=== PATIENT | male | born 1960 | race Caucasian/White ===

== ENCOUNTER 2024-09-29 15:31 | Outpatient (AMB) | payer OTHER, SELFPAY ==
--- NOTE | 2024-09-29 15:48 | AM.OFFWIN_ITS ---
Intake Vital Signs 09/29/24 15:49 Height 5 ft 9 in Weight 197 lb 2 oz BMI 29.1 BP 134/72 Blood Pressure Location Lt brachial Position Sitting Pulse 68 Pulse Source Pulse Oximeter Temp 98.3 F Temp Source Oral Pulse Oximetry (%) 97 Oxygen Delivery Method Room Air Intake Visit Reasons: EP Hernia? 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 - The patient reports a noticeable lump in the abdomen for several months, accompanied by sharp pains and nausea. - Two CT scans confirmed the presence of an abdominal hernia that he had done at [facility]. - He was referred to a surgeon but they are out of network. - Constipation is a concern, managed wit h laxatives. - The patient lacks a primary care provi sandy and has difficulty accessing surgical consultation due to network issues. - He states that he can no longer take t he pain and he needs to have this repaired. - He has been frustrated with the runaro und he is getting from [facility] and his other providers. - He has been nauseous and eating very l ittle. - He still has been working. - He denies diarrhea, bleeding rectally, fever, chills, or vomiting. Physical Exam General: Cooperative, healthy appearing, comfortable, no acute distress and well developed Orientation: Patient oriented x3 Respiratory: Normal respiratory effort and able to speak in complete sentences. Clear to auscultation bilaterally Cardiovascular: Regular rate and rhythm. Normal S1 and S2 GI: Hypoactive bowel sounds. Soft, non-distended abdomen with a noticeable bulge in the LLQ. Hernia is soft, non-tender. No guarding or rebound tenderness noted. Skin: No rashes or lesions noted Patient was informed and verbally consented to the use of an ambient scribe for clinic note documentation during this visit. [facility] Social History Patient Tobacco Use Status: Former Tobacco user Review of Systems Const All systems reviewed & are unremarkable except as noted in HPI and below Physical Exam Vital Signs: Last Vital Signs Temp 98.3 F 09/29/24 15:49 Pulse 68 09/29/24 15:49 BP 134/72 09/29/24 15:49 Pulse Ox 97 09/29/24 15:49 Oxygen Delivery Method Room Air 09/29/24 15:49 BMI result Body Mass Index 29.1 Assessment & Plan Assessment & Plan (1) Hernia: Code(s): K46.9 - Unspecified abdominal hernia without obstruction or gangrene Plan Most likely an abdominal hernia Plan - Referral to a surgeon within the patient's insurance network for hernia management. - Re-establish care with a primary care provider for coordinated management and referrals. - Continue laxatives as needed for constipation. - Advised him to go to the ER if his hernia is not reducible, painful, vomiting, etc Orders: Referrals General Surgery Referral K46.9 - Unspecified abdominal hernia without obstruction or gangrene Coding Level of Care Code Est Pt Level 4 (38630) Diagnoses Hernia K46.9
[2024-09-29 15:49] VITALS: BP 134/72; PULSE 68; TEMP 36.8; O2SAT 97; BMI 29.1
== END 2024-09-29 16:42 | disposition home or self-care (01) ==
PROVIDERS: PCP Family Medicine; Visit Provider Physician Assistant Medical
DX: K46.9 Unspecified abdominal hernia without obstruction or gangrene (principal)

== ENCOUNTER 2024-10-22 08:44 | Emergency (ER) | payer OTHER, SELFPAY ==
--- NOTE | ~2024-10-22 | CT_ITS ---
EXAMINATION: CT ABDOMEN AND PELVIS WITH CONTRAST CLINICAL INFORMATION: Left-sided abdominal pain COMPARISON: None available. TECHNIQUE: Multidetector volumetric images were obtained from the superior aspect of the liver through the pubic symphysis following administration 85 mL of Omnipaque 350 intravenous contrast. Sagittal and coronal reformatted images were obtained on the technologist's workstation. Oral contrast: No This CT examination was performed using dose optimization techniques as appropriate, variously including the following: *Automated exposure control *Adjustment of mA and/or kV according to patient size (this includes techniques or standardized protocols for targeted exams where dose is matched to indication/reason for exam; i.e. extremities or head) *Use of iterative reconstruction technique. DLP: 708 mGy centimeter. FINDINGS: Beam hardening artifact secondary to the metallic hip prosthesis bilaterally. LUNG BASES: No gross acute airspace disease. LIVER, GALLBLADDER, AND BILIARY TREE: Liver measures 14 cm. There are multiple, different sizes, lobulated, fluid density lesions throughout the hepatic parenchyma, the largest measures 24 mm. Main portal veins, hepatic veins and intrahepatic portion of the IVC are patent. Gallbladder is nondistended. No pericholecystic fluid collection or gallbladder wall thickening. No intrahepatic or extrahepatic biliary ductal dilatation. PANCREAS: No focal mass. No peripancreatic fluid collection. SPLEEN: 8 cm. No focal mass. ADRENAL GLANDS: No nodular lesion soft tissue fullness, both adrenal glands. Punctate calcification right adrenal gland. KIDNEYS AND URETERS: Cluster of less than 5 mm calculi in the midportion of the right kidney. 1 mm calcification in the lower pole left kidney. Multifocal parapelvic and exophytic cystic lesions in the kidneys. No gross hydronephrosis. Normal enhancement pattern of the renal parenchyma without gross renal mass. No dilatation of the ureters. BLADDER: Fluid-filled. GASTROINTESTINAL TRACT: Appendix is normal. Stool within the large intestine. Gas and fluid-filled mildly prominent small bowel loops. No gross intestinal wall thickening. No pneumatosis intestinalis. No ascites. No pneumoperitoneum. ABDOMINAL WALL: Small fat-containing umbilical hernia. Asymmetric fat density in the left inguinal canal. No overt inguinal hernia. LYMPH NODES: No mesenteric or retroperitoneal lymphadenopathy. VASCULAR: Throughout the abdominal aorta wall and iliac arteries. No aneurysm or dissection abdominal aorta. Focal calcified plaque in the proximal right main renal artery. PELVIC VISCERA: Not enlarged. OSSEOUS STRUCTURES: Bilateral hip arthroplasty prosthesis. Multilevel thoracolumbar spondylosis without acute fracture or gross listhesis. Central spinal canal stenosis at L3-4 and to a lesser extent L4-5 on a degenerative basis. Spina bifida occulta, S1. CT/CT abdomen pelvis w IV con IMPRESSION: Probable enteritis without intestinal obstruction pattern. Small fat-containing umbilical hernia. Asymmetric prominent fat density left inguinal canal without overt hernia. Nonobstructing nephrolithiasis, bilaterally. Probable multiple hepatic cysts. Multiple parapelvic and exophytic renal cysts, bilaterally. Atherosclerosis disease. Calcified plaque at the origin right main renal artery with likely high degree stenosis. Multilevel thoracolumbar spondylosis. Fleischner guidelines were followed. Electronically signed by: Ayan Barger MD 10/22/2024 12:49 PM EDT
[2024-10-22 08:49] VITALS: BP 195/84; PULSE 73; RESP 16; TEMP 36.3; O2SAT 99; BMI 29.9
[2024-10-22 09:08] LABS: MANUAL DIFF FLAG NO
[2024-10-22 09:11] LABS: Hematocrit 45.9 % (42.0-52.0); Hemoglobin 16.6 g/dl (14.0-18.0); Imm Gran Abs Auto 0.01 X10*3/uL (0.00-0.03); Imm Gran Pct Auto 0.2 % (0.0-0.4); Lymphocytes Absolute Auto 1.4 X10*3/uL (1.2-4.9); Mean Corpuscular HGB Conc 36.2 g/dl (31.0-36.0); Mean Corpuscular Hemoglobin 31.2 pg (27.0-33.0); Mean Corpuscular Volume 86.3 fL (80.0-98.0); NRBC Abs Auto 0.000 X10*3/uL (0.0-0.012); NRBC Pct Auto 0.0 /100WBC (0.0-0.2); Platelet Count 214 X10*3/uL (160-400); Red Blood Count 5.32 X10*6/uL (4.60-5.80); White Blood Count 4.9 X10*3/uL (4.8-10.8)
[2024-10-22 09:25] LABS: Alanine Aminotransferase 26 U/L (0-40); Albumin Level 5.0 g/dL (3.5-5.0); Alkaline Phosphatase 81 U/L (39-117); Anion Gap 14 (12-20); Aspartate Amino Transferase 27 U/L (5-37); Blood Urea Nitrogen 16 mg/dL (9-16); Calcium 10.4 mg/dL (8.4-10.2); Carbon Dioxide 21 mmol/L (22-29); Chloride 109 mmol/L (96-108); Creatinine Clr Calc Pharmacy 81.0; Estimated Glomerular Filt Rate > 60; Lipase 30 U/L (8-78); Potassium 4.0 mmol/L (3.3-5.1); Sodium 140 mmol/L (135-145); Total Protein 7.7 g/dL (6.5-8.0)
--- NOTE | 2024-10-22 10:26 | PC.NURSE ---
patient presents to the ED with pain in his abd, patient has known hernia that he was dx with 6mo ago, states that he has been following at [facility] but his appointments are too far out. patient states that he has 8/10 pain. patient states he has poor po intake due to pain/nausea/vomiting. last BM was this morning that he described as small.
--- NOTE | 2024-10-22 10:53 | ED_ITS ---
HPI - Abdominal Pain General Chief Complaint: Abdominal Pain Stated Complaint: hernia, vomiting Time Seen by Provider: 10/22/24 10:32 Source: patient Mode of arrival: ambulatory Limitations: no limitations History of Present Illness HPI narrative: This is a 64 years old patient comes in complaining of abdominal pain, he stated that he has a history of hernia for the last couple of days he has been having more nausea vomiting and increasing pain. MD elicited complaint: abdominal pain Pertinent past history: other (Hernia) Onset (ago): day(s) (2) Pain Consistency: constant Location: LLQ Severity: mild Quality: cramping Radiation: none Migration to: no migration Exacerbating factors: nothing Relieving factors: nothing Associated symptoms: denies other symptoms Related Data Previous Rx's ?Medication ?Instructions ?Recorded amlodipine 5 mg-benazepril 20 mg 1 cap PO DAILY 90 day s #90 caps 10/25/21 capsule simvastatin 20 mg tablet 20 mg PO DAILY 90 days #90 t abs 10/25/21 omeprazole 40 mg capsule,delayed 40 mg PO DAILY 4 week s #28 caps 10/22/24 release Allergies Allergy/AdvReac Type Severity Reaction Status Date / Time No Known Allergies Allergy Verified 10/22/24 08:50 Review of Systems Constitutional: Reports no additional constitutional complaints Reports system reviewed and no additional complaints, except as documented Reports system reviewed and no additional complaints, except as documented Psychiatric: Reports no additional psychiatric complaints [facility] Past Medical History [facility] Narrative: History of left inguinal area Social History Social History Patient Tobacco Use Status: Former Tobacco user Physical Exam ED Exam Exam: No acute distress comfortable in the stretcher Vital Signs: Vital Signs - 24 hr 10/22/24 08:49 10/22/24 11:49 Temperature 97.4 F Pulse Rate 73 60 Respiratory Rate 16 16 Blood Pressure 195/84 H 163/76 H Pulse Oximetry 99 100 Oxygen Delivery Method Room Air Room Air BMI result Body Mass Index 29.9 Const General: cooperative Nutritional Appearance: well nourished Orientation/consciousness: patient oriented x3 HENMT Head: Yes normal to inspection Ears: hearing grossly normal bilaterally Face and sinus: Yes normal facial exam Mouth: Normal oral and palatal mucosa present Throat: Yes posterior oropharynx normal Neck Neck: Yes normal visual inspection Chest Chest palpation & inspection: normal inspection of the chest Resp Effort & Inspection: normal respiratory effort Auscultation: clear to auscultation bilaterally Cardio Jugular venous distension: no JVD Rate: regular rate Rhythm: regular rhythm GI Inspection: Yes normal to inspection Palpation (GI): Soft to palpation, not firm and nontender Auscultation: normal bowel sounds Skin General skin exam: no rashes or lesions noted Lesions: no lesions Rashes: no rashes Neuro General: patient oriented x3 Course Reevaluation(s) Reevaluation #1: CT reviewed with the patient no evidence of small-bowel obstruction no evidence of inguinal hernia he has a small umbilical hernia with fat. I think he can be discharged home. He can follow-up with the his primary care physician and GI (radiology read as a possible enteritis) Medical Decision Making Medical Decision Making MDM Narrative: Patient is here complaining of left lower quadrant abdominal pain we will obtain imaging we will administer IV fluids analgesia. 13:11 workup is now completed he has a normal white count. CT scan shows no bowel obstruction no free air no inguinal hernia, possible enteritis I think he can be discharged home he can follow-up with accounts receivable representative ,at this time we will discharge him home Differential Diagnosis Differential Diagnoses: The differential diagnosis associated with the presentation includes Admission/Observation Consideration of admission/observation: Escalation of care including admission/observation considered Lab Data [facility] Lab Attestation statement: I reviewed the patient's lab results. 10/22/24 09:05 10/22/24 09:05 Labs: Lab Results 10/22/24 10/22/24 Range/Units 09:05 11:51 WBC 4.9 (4.8-10.8) X10*3/uL RBC 5.32 (4.60-5.80) X10*6/uL Hgb 16.6 (14.0-18.0) g/dl Hct 45.9 (42.0-52.0) % MCV 86.3 (80.0-98.0) fL MCH 31.2 (27.0-33.0) pg MCHC 36.2 H (31.0-36.0) g/dl RDW 12.4 (11.0-16.0) % Plt Count 214 (160-400) X10*3/uL MPV 8.7 L (9.4-12.4) fL Immature Gran % (Auto) 0.2 (0.0-0.4) % Neut % (Auto) 61.2 (45-73) % Lymph % (Auto) 28.7 (20-40) % [place] % (Auto) 8.1 (2-11) % Eos % (Auto) 1.2 (0-4) % Baso % (Auto) 0.6 (0-2) % Lymph # (Auto) 1.4 (1.2-4.9) X10*3/uL [place] # (Auto) 0.4 (0.1-1.2) X10*3/uL Eos # (Auto) 0.1 (0.0-0.4) X10*3/uL Baso # (Auto) 0.0 (0.0-0.2) X10*3/uL Abs Immat Gran (auto) 0.01 (0.00-0.03) X10*3/uL Absolute Neuts (auto) 3.0 (2.0-8.3) x10*3/uL Absolute Nucleated RBC 0.000 (0.0-0.012) X10*3/uL Nucleated RBC % (auto) 0.0 (0.0-0.2) /100WBC Sodium 140 (135-145) mmol/L Potassium 4.0 (3.3-5.1) mmol/L Chloride 109 H (96-108) mmol/L Carbon Dioxide 21 L (22-29) mmol/L Anion Gap 14 (12-20) BUN 16 (9-16) mg/dL Creatinine 0.96 (0.5-1.4) mg/dL Estim Creat Clear Calc 81.0 Estimated GFR > 60 Random Glucose 120 H (60-115) mg/dL Calcium 10.4 H (8.4-10.2) mg/dL Total Bilirubin 0.6 (0.0-1.0) mg/dL AST 27 (5-37) U/L ALT 26 (0-40) U/L Alkaline Phosphatase 81 (39-117) U/L Total Protein 7.7 (6.5-8.0) g/dL Albumin 5.0 (3.5-5.0) g/dL Lipase 30 (8-78) U/L Urine Color Yellow Urine Appearance Clear Urine pH 6.5 (5.0-9.0) Ur Specific [place] 1.010 (1.005-1.025) Urine Protein Negative (Neg-Trace) mg/dL Urine Glucose (UA) Negative (Negative) mg/dL Urine Ketones Negative (Negative) mg/dL Urine Blood Negative (Negative) Urine Nitrite Negative (Negative) Ur Leukocyte Esterase Negative (Negative) Medications Administered Discontinued Medications Generic Name Dose Route Start Last Admin Trade Name Freq PRN Reason Stop Dose Admin Sodium Chloride 1,000 mls @ 999 mls/hr 10/22/24 11:00 10/22/24 12:48 Ns IVCONT 10/22/24 12:00 Infused .Q1H1M VENU Infusion Sodium Chloride 1,000 mls @ 999 mls/hr 10/22/24 11:00 10/22/24 13:35 Ns IVCONT 10/22/24 12:00 Infused .Q1H1M VENU Infusion Iohexol 100 ml 10/22/24 12:11 10/22/24 12:11 Iohexol 350 Mg/Ml 100 Ml Infus..Btl IV 10/22/24 12:12 85 ml ONCE ONE Administration Morphine Sulfate 4 mg 10/22/24 10:52 10/22/24 11:07 Morphine Sulfate 4 Mg/Ml Cartridge IVPUSH 10/22/24 10:53 4 mg ONCE ONE Administration Protocol Ondansetron HCl 4 mg 10/22/24 10:52 10/22/24 11:07 Ondansetron Hcl 4 Mg/2 Ml Vial IVPUSH 10/22/24 10:53 4 mg ONCE ONE Administration Discharge Plan Discharge Clinical Impression: Abdominal pain Patient Disposition: Home, Self-Care Instructions: Abdominal Pain (ED) Additional Instructions: Follow-up with accounts receivable representative, as we discussed the CAT scan shows no blockage, no colitis no diverticulitis no definitive hernia in the left inguinal canal stay on liquid diet for few days we sent a prescription for Protonix to your pharmacy Prescriptions: New omeprazole 40 mg capsule,delayed release(DR/EC) 40 mg PO DAILY 28 Days Qty: 28 0RF No Action amlodipine-benazepril 5-20 mg capsule 1 cap PO DAILY 90 Days Qty: 90 1RF simvastatin 20 mg tablet 20 mg PO DAILY 90 Days Qty: 90 1RF Referrals: Keren Jennings MD [Physician, Gastroenterology] - 10/28/24 Discharge Date/Time: 10/22/24 13:37 Print Language: Wolof
[2024-10-22 11:49] VITALS: BP 163/76; PULSE 60; RESP 16; O2SAT 100
[2024-10-22 11:59] LABS: Appearance Urine Clear; Glucose Urine UA Negative (Negative); PH 6.5 (5.0-9.0); Specific Gravity - Urine 1.010 (1.005-1.025)
[2024-10-22] MEDS: iohexoL 350 MG/ML 100 ML INFUS..BTL IV (12:11)
== END 2024-10-22 13:37 | disposition home or self-care (01) ==
PROVIDERS: Emergency Provider Emergency Medicine
DX: R10.2 Pelvic and perineal pain (principal); R11.2 Nausea with vomiting, unspecified; R10.32 Left lower quadrant pain; Z87.891 Personal history of nicotine dependence; Z79.899 Other long term (current) drug therapy
CPT/HCPCS: 36415; 74177; 80053; 81003; 83690; 85025; 96361; 96374; 96375; 99284; J2270; J2405; Q9967

== ENCOUNTER → 2024-10-22 10:51 | Outpatient (BNV) | payer OTHER, SELFPAY | PROVIDERS: Emergency Provider Emergency Medicine; Visit Provider Radiology Diagnostic Radiology | DX: K42.9 Umbilical hernia without obstruction or gangrene (principal) | CPT/HCPCS: 74177 ==

== ENCOUNTER 2024-10-23 12:52 | Outpatient (AMB) | payer OTHER, SELFPAY ==
--- NOTE | 2024-10-23 12:54 | MHC.PC.OV ---
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: No Accompanied by: Self / Same As Patient Allergies No Known Allergies Allergy (Verified 10/23/24 12:55) Medication List - Last Reconciled 10/23/24 by Pia Holbrook MD amlodipine-benazepril 5-20 mg 1 cap PO DAILY 90 days simvastatin 20 mg PO DAILY 90 days Tobacco use date assessed: 10/23/24 Dental Screening Dental Screen Date: 10/23/24 Did you have a dental visit in the last 12 months?: Yes Did you have a dental problem in the last 6 months where you did not have access to dental care?: No Was dental information given to patient?: Patient has dentist HPI HPI Comments History of Present Illness Details The patient is a 64-year-old male presenting with an inguinal hernia and needs to establish care with PCP. The inguinal hernia has been present for approximately six months, causing discomfort and pain, especially during physical activities such as climbing ladders and mixing concrete. The patient reports that the hernia becomes more prominent with certain movements and has led to a significant weight loss from 206 pounds to 189 pounds. The patient has a history of bilateral renal cysts, pancreatic cyst, and liver cysts, which were identified through imaging studies. The pancreatic cyst was previously evaluated and determined to be benign. The patient has a history of hypertension, which was noted to be elevated during a recent hospital visit, possibly due to stress. The patient is currently on amlodipine benazepril for blood pressure management. The patient has experienced hyperglycemia and hypercalcemia, with recent lab results indicating elevated glucose and calcium levels. The patient denies any history of kidney stones despite the elevated calcium levels. The patient has a history of constipation, for which he has been taking laxatives. The patient underwent bilateral hip replacement due to osteoarthritis approximately five years ago, with no current issues reported. The patient also reports knee osteoarthritis, with significant degeneration noted in the knee joint. [facility] Social History Housing: House Patient Tobacco Use Status: Former Tobacco user e-Cigarette/Vaping Use: Never Used service: No Current occupational status: employed Hearing needs: No Vision needs: No Questionnaire PHQ-9 Over the last 2 weeks, how often have you been bothered by any of the following problems? 1. Little interest or pleasure in doing things: not at all 2. Feeling down, depressed, or hopeless: not at all 3. Trouble falling or staying asleep, or sleeping too much: not at all 4. Feeling tired or having little energy: not at all 5. Poor appetite or overeating: not at all 6. Feeling bad about yourself - or that you are a failure or have let yourself or your family down: not at all 7. Trouble concentrating on things, such as reading the newspaper or watching television: not at all 8. Moving or speaking so slowly that other people could have noticed. Or the opposite - being so fidgety or restless that you have been moving around a lot more than usual: not at all 9. Thoughts that you would be better off or of hurting yourself in some way: not at all Total score: 0 76839 - PHQ-9 Billing: Yes Source: Developed by Drs. Shine Prasad, Lyndsey San, Aramis Hendrickson and colleagues, with an educational radha from [employer]. Thrive Questionnaire Date Thrive assessed: 10/23/24 I am a: Patient What is your living situation today?: I have a steady place to live Within the past 12 months, did the food you bought not last and you didn't have the money to get more?: Never true Within the past 12 months, did you worry whether your food would run out before you got money to buy more?: Never true Do you have trouble paying for medicines?: No Do you have trouble getting transportation to medical appointments?: No Do you have trouble paying your heating and electricity bill?: No Do you have trouble taking care of your child, family member or friend?: No Do you have trouble with day-to-day activities such as bathing, preparing meals, shopping, managing finances, etc.?: No Are you currently unemployed and looking for a job?: No Are you interested in more education?: No Please select the resources that you would like help with: None Currently or been in a relationship where the following occur: No concerns reported THRIVE Score: 0 AUDIT C Alcohol Use Questionnaire (AUDIT-C) 1. How often do you have a drink containing alcohol?: Never Total Score: 0 SAMIRA-7 AMB Questionnaire SAMIRA-7 Date SAMIRA - 7 assessed: 10/23/24 Feeling nervous, anxious, or on edge: 0 = Not at all Not being able to stop or control worryin = Not at all Worrying too much about different things: 0 = Not at all Trouble relaxin = Not at all Being so restless that it is hard to sit still: 0 = Not at all Becoming easily annoyed or irritable: 0 = Not at all Feeling afraid as if something awful might happen: 0 = Not at all Total SAMIRA-7 score (0-4 normal; 5-9 mild; 10-14 moderate; 15-21 severe): 0 Source: Developed by Drs. Shine Prasad, Lyndsey San, Aramis Hendrickson and colleagues, with an educational radha from [employer]. SAMIRA-7 Assessment Billing SAMIRA-7 Assessment Tool: SAMIRA-7 Assessment 80712 Review of Systems Const Details: Positives besides what was mentioned in HPI are in BOLD Constitutional: No Weight Change, No Fever, No Chills, No Night Sweats, No Fatigue, No Malaise ENT/Mouth: No Hearing Changes, No Ear Pain, No Nasal Congestion, No Sinus Pain, No Hoarseness, No sore throat, No Rhinorrhea, No Swallowing Difficulty Eyes: No Eye Pain, No Swelling, No Redness, No Foreign Body, No Discharge, No Vision Changes Cardiovascular: No Chest Pain, No SOB, No PND, No Dyspnea on Exertion, No Orthopnea, No Claudication, No Edema, No Palpitations Respiratory: No Cough, No Sputum, No Wheezing, No Smoke Exposure, No Dyspnea Gastrointestinal: No Nausea, No Vomiting, No Diarrhea, No Constipation, No Pain, No Heartburn, No Anorexia, No Dysphagia, No Hematochezia, No Melena, No Flatulence, No Jaundice Genitourinary: No Dysmenorrhea, No DUB, No Dyspareunia, No Dysuria, No Urinary Frequency, No Hematuria, No Urinary Incontinence, No Urgency, No Flank Pain, No Urinary Flow Changes, No Hesitancy Musculoskeletal: No Arthralgias, No Myalgias, No Joint Swelling, No Joint Stiffness, No Back Pain, No Neck Pain, No Injury History Skin: No Skin Lesions, No Pruritis, No Hair Changes, No Breast/Skin Changes, No Nipple Discharge Neuro: No Weakness, No Numbness, No Paresthesias, No Loss of Consciousness, No Syncope, No Dizziness, No Headache, No Coordination Changes, No Recent Falls Psych: No Anxiety/Panic, No Depression, No Insomnia, No Personality Changes, No Delusions, No Rumination, No SI/HI/AH/VH, No Social Issues, No Memory Changes, No Violence/Abuse Hx., No Eating Concerns Heme/Lymph: No Bruising, No Bleeding, No Transfusions History, No Lymphadenopathy Endocrine: No Polyuria, No Polydipsia, No Temperature Intolerance Physical exam (Primary Care) Vital Signs: Last Vital Signs Pulse 75 10/23/24 12:57 BP 120/70 10/23/24 12:57 Pulse Ox 98 10/23/24 12:57 Oxygen Delivery Method Room Air 10/23/24 12:57 BMI result Body Mass Index 28.4 Tobacco/Smoking Status: Tobacco use Status Tobacco use date assessed 10/23/24 10/23/24 13:07 Patient Tobacco Use Status Former Tobacco user 10/23/24 13:07 e-Cigarette/Vaping Use Never Used 10/23/24 13:07 PHQ-9: PHQ-9 Score PHQ-9: Total score 0 10/23/24 13:07 Thrive Assessment: Date of Thrive Assessment Date Thrive assessed 10/23/24 10/23/24 13:07 Currently or been in a relationship where the following occur: No concerns reported Const Other: Pertinent findings are in BOLD GENERAL APPEARANCE NAD, activity normal for age, well developed/ well nourished, no cyanosis, pallor, or diaphoresis. EYES lids/conjunctiva normal. EARS/NOSE/THROAT Mucous membranes moist, nares normal, lips/teeth normal uvula midline without oral pharyngeal erythema, exudate or swelling TMs normal bilaterally. No lymphangitis/lymphedema. HEAD/NECK normocephalic atraumatic, no facial trauma, neck is supple. RESPIRATORY respiratory effort normal, speaks in full sentences, no tripod position, no accessory muscle use. Lungs clear to auscultation without rhonchi, wheezes, rales CARDIAC Regular rate and rhythm, no edema. ABDOMINAL Soft, ND/NT. No evidence of fluid wave. No pulsatile masses on exam, rebound tenderness, Donovan sign or pain over Mcburney's point. MUSCLES/EXTREMITIES No abnormal range of motion, no swelling. SKIN Warm, pink and dry. No rashes, dermatoses, petechiae or lesions. NEUROLOGICAL Speech is clear and appropriate. Normal level of consciousness. Gait and coordination are normal. 5/5 strength in all extremities. PSYCH Normal mood and affect. Judgement/competence is appropriate Coding Level of Care Code New Pt Level 4 (91006) Diagnoses FH: bilateral hip replacements Z82.69 Health maintenance examination Z00.00 Cystic kidney disease Q61.9 Liver cyst K76.89 Osteoarthritis M19.90 HLD (hyperlipidemia) E78.5 HTN (hypertension) I10 Non-recurrent unilateral inguinal hernia without obstruction or gangrene K40.90 Obstruction and gangrene presence: without obstruction or gangrene Laterality: unilateral Recurrence: non-recurrent Hypercalcemia E83.52 Constipation K59.00 Alcohol use disorder F10.90 Additional Codes SAMIRA-7 Assessment Billing - SAMIRA-7 Assessment Tool: SAMIRA-7 Assessment 19586 ([id number]) PHQ-9 - 28072 - PHQ-9 Billing: Yes ([id number]) Assessment & Plan Assessment & Plan (1) FH: bilateral hip replacements: Code(s): Z82.69 - Family history of other diseases of the musculoskeletal system and connective tissue Plan: Patient underwent bilater hip replacement. Doing well. CTM. (2) Health maintenance examination: Code(s): Z00.00 - Encounter for general adult medical examination without abnormal findings Category: Medical Plan: Labs with next visit. Colonoscopy referral placed. Declined vaccines. Declined HIV and HBV, HCV screening. Does not smoke. (3) Cystic kidney disease: Code(s): Q61.9 - Cystic kidney disease, unspecified Category: Medical Plan: Nephrology referral for further evaluation. 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 (4) Liver cyst: Code(s): K76.89 - Other specified diseases of liver Category: Medical Plan: Might be related to renal cysts. No evaluation indicated at this point. (5) Osteoarthritis: Code(s): M19.90 - Unspecified osteoarthritis, unspecified site Category: Medical Plan: s/p BL hip replacement. Left knee arthritis that patient will get it evaluated by external provider. (6) HLD (hyperlipidemia): Code(s): E78.5 - Hyperlipidemia, unspecified Category: Medical Plan: Continue Atorvastatin. (7) HTN (hypertension): Code(s): I10 - Essential (primary) hypertension Category: Medical Plan: Continue amlodipine- Benazepril. (8) Inguinal hernia: Code(s): K40.90 - Unilateral inguinal hernia, without obstruction or gangrene, not specified as recurrent Category: Medical Qualifiers: Obstruction and gangrene presence: without obstruction or gangrene Laterality: unilateral Recurrence: non-recurrent Qualified Code(s): K40.90 - Unilateral inguinal hernia, without obstruction or gangrene, not specified as recurrent Plan: General surgery referral. No signs of gangrene, or obstruction. (9) Hypercalcemia: Code(s): E83.52 - Hypercalcemia Category: Medical Plan: No signs of kidney stones. No need for further evaluation. Nephrology referral and can assist with further treatment/ evaluation if indicated. (10) Constipation: Code(s): K59.00 - Constipation, unspecified Category: Medical Plan: OTC laxatives. (11) Alcohol use disorder: Code(s): F10.90 - Alcohol use, unspecified, uncomplicated Category: Medical Plan: Stopped 40 days ago. No history of withdrawal symptoms. Congratulated patient on stopping. Told patient to let us know in case e develops relapse. Plan I discussed with the patient the presence of an inguinal hernia and the need for surgical evaluation. We also reviewed the findings of renal, pancreatic, and liver cysts, and I recommended a referral to nephrology for further assessment. The importance of managing hypertension and monitoring glucose and calcium levels was emphasized. I advised the patient on lifestyle modifications, including stress reduction. We also discussed the potential need for surgical intervention for knee osteoarthritis. Orders: Orders Complete Blood Count no Diff Today Z00.00 - Encounter for general adult medical examination without abnormal findings Lipid Panel Today Z00.00 - Encounter for general adult medical examination without abnormal findings TSH reflex Free T4 Today Z00.00 - Encounter for general adult medical examination without abnormal findings Comprehensive Met. Panel Today Z00.00 - Encounter for general adult medical examination without abnormal findings Hemoglobin A1c Today Z00.00 - Encounter for general adult medical examination without abnormal findings Referrals Gastroenterology Referral Z00.00 - Encounter for general adult medical examination without abnormal findings Nephrology Referral Q61.9 - Cystic kidney disease, unspecified, Z00.00 - Encounter for general adult medical examination without abnormal findings General Surgery Referral K40.90 - Unilateral inguinal hernia, without obstruction or gangrene, not specified as recurrent, Z00.00 - Encounter for general adult medical examination without abnormal findings Medications: New atorvastatin (Lipitor) 20 mg PO DAILY 90 tabs 3RF 3 months atorvastatin (Lipitor) 20 mg PO DAILY 3 months 90 tabs 3RF Refilled amlodipine-benazepril 5-20 mg 1 cap PO DAILY 90 caps 1RF 90 days Discontinued simvastatin Discontinued Reason: Entered in error 20 mg PO DAILY 90 days 90 tabs 1RF
[2024-10-23 12:57] VITALS: BP 120/70; PULSE 75; O2SAT 98; BMI 28.4
== END 2024-10-23 13:33 | disposition home or self-care (01) ==
LOC: HO.HMCH 12:53
PROVIDERS: Visit Provider Internal Medicine
DX: Z82.69 Family history of other diseases of the musculoskeletal system and connective tissue (principal); Z00.00 Encounter for general adult medical examination without abnormal findings; Q61.9 Cystic kidney disease, unspecified; K76.89 Other specified diseases of liver; M19.90 Unspecified osteoarthritis, unspecified site; E78.5 Hyperlipidemia, unspecified; I10 Essential (primary) hypertension; K40.90 Unilateral inguinal hernia, without obstruction or gangrene, not specified as recurrent; E83.52 Hypercalcemia; K59.00 Constipation, unspecified; F10.90 Alcohol use, unspecified, uncomplicated

== ENCOUNTER → 2024-10-23 12:52 | Outpatient (BNVA) | payer OTHER, SELFPAY | PROVIDERS: Visit Provider Internal Medicine | DX: Z00.00 Encounter for general adult medical examination without abnormal findings (principal); Q61.9 Cystic kidney disease, unspecified; K76.89 Other specified diseases of liver; M19.90 Unspecified osteoarthritis, unspecified site; E78.5 Hyperlipidemia, unspecified; I10 Essential (primary) hypertension; K40.90 Unilateral inguinal hernia, without obstruction or gangrene, not specified as recurrent; E83.52 Hypercalcemia; K59.00 Constipation, unspecified; F10.90 Alcohol use, unspecified, uncomplicated; Z82.69 Family history of other diseases of the musculoskeletal system and connective tissue | CPT/HCPCS: 96127 ==

== ENCOUNTER 2024-10-30 09:07 | Outpatient (AMB) | payer OTHER, SELFPAY ==
--- NOTE | 2024-10-30 09:12 | MHC.OFFVIS ---
Vital Signs 10/30/24 09:26 Height 5 ft 9 in Weight 193 lb BMI 28.5 BP 152/74 H Blood Pressure Location Lt brachial Position Sitting Pulse 60 Intake Visit Reasons: abnormal findings, unilateral umbilical hernia Intake Note: Patient is seen in office for evaluation of an umbilical and inguinal hernia. Pt c/o: left inguinal hernia, onset 6 months, does not recall how it happened, does physical activities daily living, pain and discomfort, reducible, admits constipation denies n/v/d CT:10/22/24 External Relations Manager Required: No Accompanied by: Self / Same As Patient Allergies No Known Allergies Allergy (Verified 10/30/24 09:19) Medication List - Last Reconciled 10/30/24 by Adelfo Solano MD amlodipine-benazepril 5-20 mg 1 cap PO DAILY 90 days atorvastatin (Lipitor) 20 mg PO DAILY 3 months HPI Comments Details: 64-year-old male patient presenting for evaluation of a left inguinal hernia and umbilical hernia. He reports 1st noting the symptoms approximately 6 weeks ago. His symptoms were associated with constipation and generalized sick feeling. He notes a large lump in the left groin but is unaware of any umbilical lump. A CT abdomen and pelvis performed on 10/22/2024 revealed a fat containing left inguinal hernia in his small umbilical hernia. He presents today to discuss repair of this left inguinal hernia. He denies any symptoms in the umbilicus. [facility] Surgical History History of hip surgery Social History Housing: House Patient Tobacco Use Status: Former Tobacco user e-Cigarette/Vaping Use: Never Used service: No Current occupational status: employed Hearing needs: No Vision needs: No Review of Systems Const All systems reviewed & are unremarkable except as noted in HPI and below Physical Exam Const General: cooperative and no acute distress Nutritional Appearance: well nourished Orientation/consciousness: patient oriented x3 Limitations: no limitations HEENT Head: Yes normocephalic and Yes atraumatic Ears: hearing grossly normal bilaterally Resp Effort & Inspection: normal respiratory effort, no audible wheezes, no cough and no respiratory distress Cardio Jugular venous distension: no JVD GI Other: Soft, nondistended, normal bowel sounds, obvious left inguinal hernia, reducible with light pressure, no palpable umbilical hernia appreciated. Inspection: Yes normal to inspection Abdomen image:  1. Left inguinal hernia, reducible Skin Other: Warm, dry, no rash Neuro General: patient oriented x3 Extrem General: Yes no clubbing, cyanosis or edema Assessment & Plan Assessment & Plan (1) Inguinal hernia: Code(s): K40.90 - Unilateral inguinal hernia, without obstruction or gangrene, not specified as recurrent Category: Medical Qualifiers: Obstruction and gangrene presence: without obstruction or gangrene Laterality: unilateral Recurrence: non-recurrent Qualified Code(s): K40.90 - Unilateral inguinal hernia, without obstruction or gangrene, not specified as recurrent Plan 64-year-old male patient presenting with complaints of pain in the left groin found to have a palpable lump which increases in size with Valsalva maneuvers but does reduce with light pressure. Findings are consistent with a reducible left inguinal hernia. I recommended repair of this left inguinal hernia with mesh. After discussion of the procedure, risks, and alternatives, he consents to the surgery. This will be scheduled as a short-stay surgery. Coding Level of Care Code New Pt Level 4 (71178) Diagnoses Non-recurrent unilateral inguinal hernia without obstruction or gangrene K40.90 Obstruction and gangrene presence: without obstruction or gangrene Laterality: unilateral Recurrence: non-recurrent
[2024-10-30 09:26] VITALS: BP 152/74; PULSE 60; BMI 28.5
== END 2024-10-30 09:34 | disposition home or self-care (01) ==
LOC: HO.HGS 09:08
PROVIDERS: PCP Internal Medicine; Visit Provider Surgery
DX: K40.90 Unilateral inguinal hernia, without obstruction or gangrene, not specified as recurrent (principal)
CPT/HCPCS: 99204

== ENCOUNTER 2024-11-04 09:32 | Day surgery (SDC) | payer OTHER, SELFPAY ==
--- NOTE | 2024-11-02 12:38 | P.CONAN_ITS ---
Documented by User: Rachana Ramirez NP 11/02/24 12:46 HPI - Anesthesia Eval Consult details Narrative: 64yo M for Left Repair Hernia Inguinal Reducible with mesh On imaging from ER, renal cyst and likely high grade renal artery stenosis - pending referral to nephro, BP elevated but ok at office visits and labs stable [facility] Active Problems Active Problems: All Active Problems Alcohol use disorder (Acute) Inguinal hernia (Acute) Hypercalcemia (Acute) Constipation (Acute) Osteoarthritis (Acute) HLD (hyperlipidemia) (Acute) HTN (hypertension) (Acute) Liver cyst (Acute) Cystic kidney disease (Acute) Health maintenance examination (Acute) Past Medical History Medical History HLD (hyperlipidemia) Alcohol use disorder HTN (hypertension) Surgical History Surgical History History of hip surgery Social History Social History Housing: House Patient Tobacco Use Status: Former Tobacco user e-Cigarette/Vaping Use: Never Used Use of substances other than those prescribed or required for medical reasons: Yes Substance Use Frequency: Occasionally Advance Directives: No Advance Directives Information Provided: Yes service: No Current occupational status: employed Hearing needs: No Vision needs: No Meds Allergies Allergy/AdvReac Type Severity Reaction Status Date / Time No Known Allergies Allergy Verified 10/30/24 09:19 Exam Pertinent Lab Results Pertinent Lab Results: Laboratory Tests 10/22/24 09:05 WBC 4.9 Hgb 16.6 Hct 45.9 Plt Count 214 Sodium 140 Potassium 4.0 Chloride 109 H Carbon Dioxide 21 L BUN 16 Creatinine 0.96 Calcium 10.4 H Total Bilirubin 0.6 AST 27 ALT 26 Alkaline Phosphatase 81 Total Protein 7.7 Albumin 5.0 Lipase 30 Narrative Narrative: CT abdomen pelvis w IV con 10/2024 IMPRESSION: Probable enteritis without intestinal obstruction pattern. Small fat-containing umbilical hernia. Asymmetric prominent fat density left inguinal canal without overt hernia. Nonobstructing nephrolithiasis, bilaterally. Probable multiple hepatic cysts. Multiple parapelvic and exophytic renal cysts, bilaterally. Atherosclerosis disease. Calcified plaque at the origin right main renal artery with likely high degree stenosis. Multilevel thoracolumbar spondylosis. Assessment and Plan Assessment Anesthesia Assessment: Chart Reviewed Documented by User: Jareth Ramos MD 11/04/24 11:22 PMFSH Past Medical History Medical History HLD (hyperlipidemia) Alcohol use disorder HTN (hypertension) Functional capacity: independent ambulation Family History Family history of problems with anesthesia: No Surgical History Surgical History History of hip surgery History of Problems with Anesthesia: No Social History Social History Housing: House Patient Tobacco Use Status: Former Tobacco user e-Cigarette/Vaping Use: Never Used Use of substances other than those prescribed or required for medical reasons: Yes Substance Use Frequency: Occasionally Advance Directives: No Advance Directives Information Provided: Yes service: No Current occupational status: employed Hearing needs: No Vision needs: No Meds Allergies Allergy/AdvReac Type Severity Reaction Status Date / Time No Known Allergies Allergy Verified 10/30/24 09:19 Exam Exam Date and Time: 11/04/24 Airway Mallampati Class: II TM Dist: >3cm Neck ROM: Full Denture: Lower (None) Loose/Missing/Broken Teeth: Lower Heart: rrr Lungs: cta Other: normal Assessment and Plan Final Anesthetic Review Family History of Problems with Anesthesia: No History of Problems with Anesthesia: No NPO: Yes ASA Class: II Final Preanesthetic Review: No Changes in Pt Med Stat, Meds/Allgs Chart Reviewed, Consent Obtained/Reviewed and Anes Risks/Benef Reviewed Assessment/Block/Sedation in SS: Assess/Block/Sedation-SS Anesthetic Plan Anesthetic Plan: MAC: and Agree w/ Assess. and Plan Disposition: Extended PACU
[2024-11-04 10:07] VITALS: BMI 27.7
[2024-11-04 10:21] VITALS: BP 145/77; PULSE 60; RESP 16; TEMP 36.9; O2SAT 99
[2024-11-04] MEDS: Lactated Ringers 1,000 ML 100 ML IVCONT (10:21)
--- NOTE | 2024-11-04 11:24 | MHC.SHP ---
Pre-Procedural Eval Section A - 24 Hr Update-Section A only Date of Service: 11/04/24 The patient is an INPATIENT: No Changes since office visit: Yes Patient answered all questions; No Cold of Flu in the past 2 weeks, No New Medical Problems and No Changes in Medication The patient has been examined within 24 hours of the surgical procedure. The History & Physical has been completed within 30 days and I have reviewed it.: Yes Section B - Complete if H&P > 30 days Chief Complaint: Unilateral inguinal hernia, without obstruction Allergies: Allergies Allergy/AdvReac Type Severity Reaction Status Date / Time No Known Allergies Allergy Verified 10/30/24 09:19 Plan Diagnosis/Plan: Unchanged I have reviewed the history and physical and performed a pertinent physical examination on my patient. No changes have occurred unless specified. Time Spent With Patient Time: Total time managing care of this patient today ____ minutes.
--- NOTE | 2024-11-04 12:26 | P.OP_ITS ---
Operative Note Operative Note Date of Service: 11/04/24 Narrative: Preoperative diagnosis: Left inguinal hernia, reducible Postoperative diagnosis: Same Procedure: Repair of left inguinal hernia with mesh Surgeon: Adelfo Solano MD Elderly Sitter: Bridget Bryant PA-C; VON S[place] Anesthesia: General LMA Indications for procedure: 64-year-old male patient presenting with a several month history of a lump in the left groin which increases in size with lifting and straining but reduces in the supine position. On examination the patient is found to have a reducible left inguinal hernia presenting today for repair with mesh. Operative findings: Patient was found to have a large indirect left inguinal hernia repaired using a large extended PHS mesh. Specimen: Hernia sac Estimated blood loss: Less than 2 mL Complications: None Procedure details: Patient was brought to the OR and placed in a supine position. After administering general anesthesia the patient's abdomen was prepped with ChloraPrep and draped in a sterile fashion. A surgical time-out was called the consent confirmed. Patient received preoperative antibiotics and Venodyne boots were in place. Local anesthesia consisting of 0.5% Sensorcaine with epinephrine was infiltrated over the left inguinal ligament. Incision was made with a scalpel and carried out through subcutaneous tissue, past Randi's fashion up to the external oblique aponeurosis. Additional local was infiltrated below the external oblique aponeurosis. This was then incised with a scalpel widened with the Metzenbaum scissors. Spermatic cord was then dissected free from the surrounding inguinal canal retracted using a Enio drain. The floor of the inguinal canal was found to be weakened. Fibers of the cremaster muscle were a large indirect hernia sac was identified. This was dissected down to the internal ring. The sac was opened and the contents reduced. The sac was then ligated using a 0 Polysorb suture. The sac was then excised and sent to pathology. Fibers of the internal oblique and transversalis aponeurosis were then incised with electrocautery between Allis clamps. Preperitoneal space was then entered and dissected using an open Ray-Tyler sponge. A large extended PHS mesh was then obtained. The circular underlay was deployed within the preperitoneal space in the overlay secured to the pubic tubercle, conjoined tendon and shelving edge of the inguinal ligament using a 0 Polysorb suture. A slit was made in the mesh in the mesh wrapped around the spermatic cord at the internal ring. This was then secured using a 0 Polysorb suture to the shelving edge. The internal ring was loose enough to allow the passage of a tip of the index finger. The remainder of the mesh was placed below the external oblique aponeurosis laterally. Wounds were then irrigated with saline solution and suctioned dry. External oblique aponeurosis was then closed using a running 2-0 Polysorb suture. 8 mL of Zenrelef was then instilled below the external oblique aponeurosis for postop pain relief. Randi's fascia and dermis were then reapproximated using interrupted 3-0 Polysorb sutures. Skin was closed using a running subcuticular 4-0 Polysorb suture. Steri-Strips, 4 x 4 gauze and Tegaderm were then applied. The patient tolerated the procedure well. Sponge, instrument, and needle counts reported as correct. The patient was transferred to PACU in stable condition.
[2024-11-04 12:30] VITALS: BP 118/60; PULSE 66; RESP 18; TEMP 36.7; O2SAT 100
[2024-11-04 12:35] VITALS: BP 106/51; PULSE 62; RESP 16; O2SAT 100
[2024-11-04 12:40] VITALS: BP 110/70; PULSE 61; RESP 16; O2SAT 95
[2024-11-04 12:45] VITALS: BP 125/69; PULSE 57; RESP 14; O2SAT 100
[2024-11-04 12:55] VITALS: BP 131/66; PULSE 57; RESP 18; TEMP 36.2; O2SAT 100
== END 2024-11-04 13:43 | disposition home or self-care (01) ==
PROVIDERS: Visit Provider Surgery
PROC: (CPT 49505; principal; 2024-11-04 10:50)
DX: K40.90 Unilateral inguinal hernia, without obstruction or gangrene, not specified as recurrent (principal); K59.00 Constipation, unspecified; I10 Essential (primary) hypertension; E78.5 Hyperlipidemia, unspecified; F10.90 Alcohol use, unspecified, uncomplicated; Z79.899 Other long term (current) drug therapy; Z98.890 Other specified postprocedural states; Z87.891 Personal history of nicotine dependence
CPT/HCPCS: 49505; 88302; C1781; C9088; J0690; J1171; J2003; J2704; J3010

== ENCOUNTER → 2024-11-04 09:32 | Outpatient (BNV) | payer OTHER, SELFPAY | PROVIDERS: Visit Provider Surgery | DX: K40.90 Unilateral inguinal hernia, without obstruction or gangrene, not specified as recurrent (principal) | CPT/HCPCS: 49505 ==

== ENCOUNTER 2024-11-11 09:22 | Outpatient (AMB) | payer OTHER, SELFPAY ==
--- NOTE | 2024-11-11 09:25 | MHC.OFFVIS ---
Vital Signs 11/11/24 09:33 Weight 187 lb BP 132/62 Blood Pressure Location Lt brachial Position Sitting Pulse 72 Intake Visit Reasons: s/p LIH w/mesh Intake Note: Patient here s/p repair of left inguinal hernia with mesh. Patient c/o: steri strips removed without incident. Never took rx pain meds. Surgery: () 11-04-2024 Director Emergency Required: No Accompanied by: Self / Same As Patient Allergies No Known Allergies Allergy (Verified 11/11/24 09:33) HPI HPI s/p LIH w/mesh: Details: 64-year-old male s/p left inguinal hernia repair with mesh on 11/04/[address] Solano returning to the office for routine follow up. Patient states he feels ?200% better?. Has some discomfort, when sleeping, tossing and turning and would bending over but otherwise denies pain. Does endorse some swelling and bruising around the incision site. Denies any drainage or bleeding. Denies nausea or vomiting. Denies problems with urination or bowel movements. He has not been heavy lifting. 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 Has been going on walks. [facility] Medical History (Updated 11/11/24 @ 08:26 by CHARAN Juarez) Left inguinal hernia (11/04/24) HLD (hyperlipidemia) Alcohol use disorder HTN (hypertension) Surgical History (Updated 11/11/24 @ 09:47 by Nazario Jimenes PA-C) History of hip surgery Social History Housing: House Patient Tobacco Use Status: Former Tobacco user e-Cigarette/Vaping Use: Never Used service: No Current occupational status: employed Hearing needs: No Vision needs: No Review of Systems Const All systems reviewed & are unremarkable except as noted in HPI and below Physical Exam Vital Signs: Last Vital Signs Pulse 72 11/11/24 09:33 BP 132/62 11/11/24 09:33 Const General: comfortable and no acute distress Orientation/consciousness: patient oriented x3 Resp Effort & Inspection: normal respiratory effort and able to speak in complete sentences GI Other: Incision site clean dry and intact, moderate surrounding ecchymosis some mild edema. Mildly tender to the touch. No palpable fluid collection, no drainage. Inspection: No distended Palpation (GI): Soft to palpation and Tenderness to palpation present (GI) (Incision site LIH) Neuro General: patient oriented x3 Assessment & Plan Assessment & Plan (1) S/P inguinal hernia repair: Comment: Left inguinal hernia with mesh, 11/04/2024 Dr. Solano Code(s): Z98.890 - Other specified postprocedural states; Z87.19 - Personal history of other diseases of the digestive system Category: Medical Plan 64-year-old male s/p left inguinal hernia repair with mesh on 11/04/[address] Solano returning to the office for routine follow up. Overall patient doing very well, pain well controlled only needing occasional Tylenol. Has some pain with ambulation, expected at this point, educated that this may proceed for the next few weeks especially with movements like bending over, patient may feel pulling as he must begins to scar in. Appetite and bowel function are at baseline. No issues with the urination. On exam abdomen is soft and benign, the incision site appears to be healing well. There is some ecchymosis surrounding the incision site, appropriate for this stage postoperatively. Reassured him that this should improve over the next few weeks. Due to the nature of his job, patient will need to be out of work for at least the next few weeks. He said there was an option for light duty, but is out of work until the and we will re-evaluate with his employer regarding the plan to returned to work. For now we will continue with activity restrictions no heavy lifting greater than 15-20 lb until about 6 weeks after the procedure, estimated date December 16. He is agreeable this plan. He will follow up in 4 weeks for one-month postop visit, can return sooner with any questions or concerns. Coding Level of Care Code Global (17487) Diagnoses S/P inguinal hernia repair Z98.890; Z87.19
[2024-11-11 09:33] VITALS: BP 132/62; PULSE 72
== END 2024-11-11 09:39 | disposition home or self-care (01) ==
LOC: HO.HGS 09:22
DX: Z98.890 Other specified postprocedural states (principal); Z87.19 Personal history of other diseases of the digestive system
CPT/HCPCS: 99024

== ENCOUNTER 2024-11-18 11:06 | Outpatient (REF) | payer OTHER, SELFPAY ==
[2024-11-18 18:31] LABS: Appearance Urine Cloudy; Glucose Urine UA Negative (Negative); PH 5.0 (5.0-9.0); Specific Gravity - Urine 1.020 (1.005-1.025)
== END 2024-11-18 11:07 | disposition home or self-care (01) ==
LOC: HO.HKASLDS 11:06
PROVIDERS: Visit Provider Internal Medicine Hypertension Specialist
DX: Q61.9 Cystic kidney disease, unspecified (principal)
CPT/HCPCS: 81003; 88112

== ENCOUNTER 2024-11-18 11:06 | Outpatient (AMB) | payer OTHER, SELFPAY ==
[2024-11-18 11:13] VITALS: BP 118/68; PULSE 64; O2SAT 99; BMI 28.2
--- NOTE | 2024-11-18 11:13 | HO.NEPHOV ---
Vital Signs 11/18/24 11:13 Height 5 ft 9 in Weight 191 lb BMI 28.2 BP 118/68 Blood Pressure Location Lt brachial Position Sitting Pulse 64 Pulse Source Pulse Oximeter Pulse Oximetry (%) 99 Oxygen Delivery Method Room Air Intake Visit Reasons: INP- DX Renal Cyst, confirmed Filterer Required: No Accompanied by: Self / Same As Patient Allergies No Known Allergies Allergy (Verified 11/18/24 11:17) Medication List - Last Reconciled 11/18/24 by Wilton Benson MD amlodipine-benazepril 5-20 mg 1 cap PO DAILY 90 days atorvastatin (Lipitor) 20 mg PO DAILY 3 months HPI Comments Details: - The patient is a 64-year-old male presenting with a renal cyst and hypertension. - Renal cyst discovered during imaging for abdominal pain, later attributed to a hernia. - Hypertension managed with amlodipine and benazepril, blood pressure well-controlled. - Takes atorvastatin for hyperlipidemia. - Family history of hypertension, mother from stroke related to high blood pressure. - No history of kidney stones or significant kidney issues. - Physically active job, recently stopped alcohol consumption. [facility] Medical History (Updated 11/11/24 @ 08:26 by CHARAN Juarez) Left inguinal hernia (11/04/24) HLD (hyperlipidemia) Alcohol use disorder HTN (hypertension) Surgical History (Updated 11/18/24 @ 11:17 by CHARAN Davidson) History of hernia surgery (~10/2024) History of hip surgery Social History Housing: House Patient Tobacco Use Status: Former Tobacco user e-Cigarette/Vaping Use: Never Used service: No Current occupational status: employed Hearing needs: No Vision needs: No Review of Systems Const Denies fever(s) and Denies weight loss Card Denies chest pain Resp Denies cough and Denies hemoptysis GI Denies abdominal pain, Denies diarrhea and Denies nausea Musc Denies back pain Neuro Denies focal weakness Physical Exam Vital Signs: Last Vital Signs Pulse 64 11/18/24 11:13 BP 118/68 11/18/24 11:13 Pulse Ox 99 11/18/24 11:13 Oxygen Delivery Method Room Air 11/18/24 11:13 BMI result Body Mass Index 28.2 Comfortable Neck supple no JVD. Lungs entry equal no rales. Heart S1-S2 heard no gallop or rub. Abdomen soft nontender. Neuro alert awake oriented. No asterixis. Extremities no edema. Results Reviewed Results Reviewed: CT scan 2024 [facility]NEYS [place] URETERS: Cluster of less than 5 mm calculi in the midportion of the right kidney. 1 mm calcification in the lower pole left kidney. Multifocal parapelvic and exophytic cystic lesions in the kidneys. No gross hydronephrosis. Normal enhancement pattern of the renal parenchyma without gross renal mass. No dilatation of the ureters. Nephrology Results: Hgb, (14.0-18.0) 16.6 g/dl 10/22/24 WBC, (4.8-10.8) 4.9 X10*3/uL 10/22/24 Plt Count, (160-400) 214 X10*3/uL 10/22/24 Sodium, (135-145) 140 mmol/L 10/22/24 Potassium, (3.3-5.1) 4.0 mmol/L 10/22/24 Chloride, (96-108) 109 mmol/L H 10/22/24 Carbon Dioxide, (22-29) 21 mmol/L L 10/22/24 BUN, (9-16) 16 mg/dL 10/22/24 Creatinine, (0.5-1.4) 0.96 mg/dL 10/22/24 Calcium, (8.4-10.2) 10.4 mg/dL H 10/22/24 Urine Protein, (Neg-Trace) Negative mg/dL 10/22/24 Assessment & Plan Assessment & Plan (1) Cystic kidney disease: Code(s): Q61.9 - Cystic kidney disease, unspecified Category: Medical Plan Renal cyst Image reviewed with patient Check urine cytology and UA Follow up USG ordered - to be done in 12 months Orders: Orders Urine Cytology Today Q61.9 - Cystic kidney disease, unspecified, R31.9 - Hematuria, unspecified US renal BI 1 Year Q61.9 - Cystic kidney disease, unspecified UA and rflx microscopic Today Q61.9 - Cystic kidney disease, unspecified Coding Level of Care Code New Pt Level 4 (66344) Diagnoses Cystic kidney disease Q61.9
== END 2024-11-18 11:42 | disposition home or self-care (01) ==
LOC: HO.HKAS 11:07
PROVIDERS: Visit Provider Internal Medicine Hypertension Specialist
DX: Q61.9 Cystic kidney disease, unspecified (principal)
CPT/HCPCS: 99204

== ENCOUNTER 2024-12-14 14:18 | Outpatient (AMB) | payer OTHER, SELFPAY ==
--- NOTE | 2024-12-14 14:46 | AM.OFFVISNUR ---
Intake Visit Reasons: s/p LIH w/mesh Allergies No Known Allergies Allergy (Verified 11/18/24 11:17) Coding
--- NOTE | 2024-12-14 14:48 | MHC.OFFVIS ---
Vital Signs 12/14/24 14:49 Height 5 ft 9 in Weight 191 lb BMI 28.2 BP 110/64 Blood Pressure Location Lt brachial Position Sitting Intake Visit Reasons: s/p LIH w/mesh Intake Note: Pt states, I'm here for a check up for my hernia. I'm better. Director Of Community Education Required: No Allergies No Known Allergies Allergy (Verified 12/14/24 14:49) Medication List - Last Reconciled 12/14/24 by Fermín Morris RN amlodipine-benazepril 5-20 mg 1 cap PO DAILY 90 days atorvastatin (Lipitor) 20 mg PO DAILY 3 months HPI HPI s/p LIH w/mesh: Details: Doing well, no complaints. States he is back to work in his slowly been increasing his heavy lifting, but has been working with a teammate was assisting with his lifting. He has no issues with diet and bowel function. [facility] Medical History Left inguinal hernia (11/04/24) HLD (hyperlipidemia) Alcohol use disorder HTN (hypertension) Surgical History History of hernia surgery (~10/2024) History of hip surgery Social History Housing: House Patient Tobacco Use Status: Former Tobacco user e-Cigarette/Vaping Use: Never Used service: No Current occupational status: employed Hearing needs: No Vision needs: No Physical Exam Vital Signs: Last Vital Signs BP 110/64 12/14/24 14:49 BMI result Body Mass Index 28.2 Const General: comfortable and no acute distress Orientation/consciousness: patient oriented x3 Resp Effort & Inspection: normal respiratory effort and able to speak in complete sentences GI Other: Incision site well healed. no fluid collection. No recurrence on Valsalva Inspection: No distended Palpation (GI): Soft to palpation and Tenderness to palpation present (GI) (Incision site LIH) Neuro General: patient oriented x3 Assessment & Plan Assessment & Plan (1) S/P inguinal hernia repair: Comment: Left inguinal hernia with mesh, 11/04/2024 Dr. Solano Code(s): Z98.890 - Other specified postprocedural states; Z87.19 - Personal history of other diseases of the digestive system Category: Surgical Plan 64-year-old male s/p left inguinal hernia repair with mesh on 11/04/[address] Solano returning to the office for routine follow up. Overall patient doing very well, denies pain, appetite and bowel function are at baseline. No issues with the urination. On exam abdomen is soft and benign, the incision site appears well healed at this point. There was no evidence of recurrence on Valsalva. He has returned to work on light duty, has been practicing some heavier lifting and feels good with this. No longer requiring activity restrictions, can increase activity as tolerated. Recommended good core activation, lifting with legs if necessary and 2 person lift if possible while he is still only about 6 weeks postop, he agrees to this plan. He no longer requiring follow up, can follow up as needed with any concerns in the future Coding Level of Care Code Global (15950) Diagnoses S/P inguinal hernia repair Z98.890; Z87.19
[2024-12-14 14:49] VITALS: BP 110/64; BMI 28.2
== END 2024-12-14 15:08 | disposition home or self-care (01) ==
LOC: HO.HGS 14:18
DX: Z98.890 Other specified postprocedural states (principal); Z87.19 Personal history of other diseases of the digestive system
CPT/HCPCS: 99024